=== PATIENT | male | born 1995 | race Caucasian/White ===

== ENCOUNTER 2016-12-28 21:00 | Inpatient (IN) | payer BC ==
--- NOTE | ~2016-12-28 | PN ---
Unit #: [id number] #: [id number] Patient: GARETT ARROYO [id number] [facility] [address] [place] [address] [id number] I MR#: [id number] NAME: GARETT ARROYO ROOM: P182 Age: 21 Sex: M Admission Date: 12/29/2016 : 1995 Attending Physician: Ramon Wang M.D. Admitting Physician: Lorena Chung PROGRESS NOTES DATE OF SERVICE: 12/30/2016 SUBJECTIVE Mr. Arroyo is a 21-year-old white male, who was seen today and chart was reviewed and case was discussed with the staff. He has been anxious, withdrawn, rather seclusive to himself. Meanwhile, he has been cooperative with the treatment recommendations and has been taking the medications and tolerating them fairly well with no reported side effects. MENTAL STATUS EXAMINATION Young white male, who was casually dressed with fair personal hygiene, appears to be in no acute distress or discomfort. He was awake and alert on interaction with intact orientation. His mood was anxious with a congruent affect. He denies any suicidal or homicidal ideations. His insight and judgment remain slightly impaired. TREATMENT PLAN 1. We will continue him on his current medications and treatment protocol. We will monitor his response to medications and make further adjustments as needed. 2. We will continue to follow up. Dictated by... Lorena Chung/elliottl TD: 12/31/2016 15:22 JOB #: [id number] [facility] PROGRESS NOTES Page 1 of 1 X Ramon Wang MD PROGRESS NOTE
--- NOTE | ~2016-12-28 | PN ---
Unit #: [id number] #: [id number] Patient: GARETT ARROYO [id number] [facility] [address] [place] [address] [id number] I MR#: [id number] NAME: GARETT ARROYO ROOM: 82 Age: 21 Sex: M Admission Date: 12/29/2016 : 1995 Attending Physician: Ramon Wang M.D. Admitting Physician: Ramon Wang M.D. Primary Care Physician: Vitaly Doctor Not In System [facility] PROGRESS NOTES DATE 01/02/2017 DISCUSSION Mr. Arroyo is a 21-year-old, white male who was seen today and chart was reviewed and case was discussed with the staff. He has been anxious, withdrawn and rather seclusive to himself. Meanwhile, he has been cooperative with treatment recommendations. He has been taking the medication and tolerating them fairly well with no reported side effects. MENTAL STATUS EXAM Young white male who was casually dressed with fair personal hygiene, appears to be in no acute distress or discomfort. He was awake and alert on interaction with intact orientation. His mood was anxious with congruent affect. His speech was slow and goal directed. He denies any suicidal or homicidal ideation. Also, denies any auditory or visual hallucinations. His insight and judgement remains slightly impaired. TREATMENT PLAN 1. We will continue him on his current treatment protocol. We will monitor his response to the medication. We make further adjustments as needed. 2. We will continue to follow up. Dictated by... Lorena Chung/radhames TD: 01/03/2017 00:20 JOB #: [id number] Unit #: [id number] #: [id number] Patient: GARETT ARROYO PROGRESS NOTES Page 1 of 1 X Ramon Wang MD PROGRESS NOTE
--- NOTE | ~2016-12-28 | PN ---
Unit #: [id number] #: [id number] Patient: GARETT ARROYO [id number] [facility] [address] [place] [address] [id number] I MR#: [id number] NAME: GARETT ARROYO ROOM: 82 Age: 21 Sex: M Admission Date: 12/29/2016 : 1995 Attending Physician: Ramon Wang M.D. Admitting Physician: Ramon Wang M.D. Primary Care Physician: Vitaly Doctor Not In System [facility] PROGRESS NOTES DATE OF SERVICE 01/01/2017 DISCUSSION Mr. Arroyo is a 21-year-old white male with substance abuse and mood disorder who was seen today. Chart was reviewed and case was discussed with the staff. He has been anxious, withdrawn, and rather seclusive to himself. Meanwhile, he has been cooperative with the treatment recommendations and has been taking the medications and tolerating them fairly well with no reported side effects. MENTAL STATUS EXAMINATION Young white male who is casually dressed with fair personal hygiene, appears to be in no acute distress or discomfort. The patient was awake and alert on interaction with intact orientation. His mood is anxious with congruent affect. He denies any suicidal or homicidal ideations and also denies any auditory or visual hallucinations. His insight and judgment remain slightly impaired. TREATMENT PLAN 1. We will continue him on his current medications and treatment protocol. We will monitor his response to the medications and make further adjustments as needed. 2. We will continue to follow up. Dictated by... Lorena Chung/ioanag TD: 01/02/2017 13:05 JOB #: [id number] Unit #: [id number] #: [id number] Patient: GARETT ARROYO PROGRESS NOTES Page 1 of 1 X Ramon Wang MD PROGRESS NOTE
--- NOTE | ~2016-12-28 | PN ---
Unit #: [id number] #: [id number] Patient: GARETT ARROYO [id number] [facility] [address] [place] [address] [id number] I MR#: [id number] NAME: GARETT ARROYO ROOM: P182 Age: 21 Sex: M Admission Date: 12/29/2016 : 1995 Attending Physician: Ramon Wang M.D. Admitting Physician: Ramon Wang M.D. Primary Care Physician: Vitaly Doctor Not In System [facility] PROGRESS NOTES DATE 12/31/2016 DISCUSSION Mr. Arroyo is a 21-year-old, white male with substance abuse and mood disorder who was seen today and chart was reviewed and case was discussed with the staff. He has been anxious, withdrawn and seclusive to himself though appears to be going through detox though he has been cooperative with treatment recommendations. He has not shown any agitation or aggression and has been taking medications and tolerating them fairly well. MENTAL STATUS EXAM Young white male who was casually dressed with fair personal hygiene, appears to be in no acute distress or discomfort. He was awake and alert with intact orientation. His mood was anxious with congruent affect. He denies any suicidal or homicidal ideation. His insight and judgement remains slightly impaired. TREATMENT PLAN We will continue him on his current treatment protocol. We will monitor his response and make further adjustments as needed. Dictated by... Lorena Chung/radhames TD: 01/01/2017 04:38 JOB #: [id number] [facility] PROGRESS NOTES Page 1 of 1 X Ramon Wang MD PROGRESS NOTE
--- NOTE | ~2016-12-28 | PA ---
Unit #: [id number] #: [id number] Patient: GARETT ARROYO [id number] [facility] [address] [place] [address] [id number] I MR#: [id number] NAME: GARETT ARROYO ROOM: P182 Age: 21 Sex: M Admission Date: 12/29/2016 : 1995 Date of Assessment: Attending Physician: Ramon Wang M.D. Admitting Physician: Ramon Wang M.D. PSYCHIATRIC ASSESSMENT IDENTIFYING DATA Mr. Arroyo is a 21-year-old single white male, who is a resident of [place], [place], and was brought to the hospital accompanied by his father. CHIEF COMPLAINT "I need detox from heroin and cocaine." HISTORY OF PRESENT ILLNESS Mr. Arroyo is [id number][id number] male with history of substance abuse and dependence, who came in with a recommendation for inpatient detox from heroin and cocaine use and reports his last use of heroin was yesterday when he used quarter of a gram and has been using half a gram daily over the last 6 months. Reports he had overdosed on heroin on December 27 with an attempt to kill himself, and he being kicked out of the [facility] and being put in a bad situation. Reports that he is not suicidal as long as his family is supportive and he stated "I really want to detox". The patient reports that he was recently said to leave from [facility], because he sold his medication and the patient reports he overdosed one morning on December 26 on half a gram of heroin and reported his normal use is half a gram, but usually uses throughout the day and not wanted the same time and also reports using cocaine and his family stated that his family is supportive, but while he was at the [facility] and he just got caught doing something he was not supposed to be doing and "we are concerned for his safety and every time I walk down the basement and scared he has a room down there and I had to check to see if his breathing and needs help and he is not going to get this". He was seen to be a significant threat to himself and as such, recommendation for inpatient level of care for safety and stabilization was made and the patient was transferred to us. SUBSTANCE ABUSE HISTORY The patient reports history of alcohol, cannabis, cocaine, and opioid abuse, and currently, opioids has been his drug of choice and he has been using cocaine quite regularly as well. PAST PSYCHIATRIC HISTORY The patient has a history of multiple inpatient chemical dependency treatments including being at [facility] and review of the medical records indicate that he is currently not active in treatment program, is not seeing a psychiatrist, not taking any psychotropic medications. PAST MEDICAL HISTORY Unit #: [id number] #: [id number] Patient: GARETT ARROYO No acute or chronic medical illnesses. ALLERGIES No known medication allergies. PERSONAL AND SOCIAL HISTORY A 21-year-old white male, who reports he lives at home with his parents and has fairly decent social support system. MENTAL STATUS EXAMINATION Young white male, who was casually dressed with fair personal hygiene, appears to be in no acute distress or discomfort. He was awake and alert on interaction with intact orientation to time, place, and person. His mood was anxious and depressed with congruent affect. His speech was slow and goal directed. He denies any current suicidal or homicidal ideations and also denies any auditory or visual hallucinations. His insight and judgment remain significantly impaired. DIAGNOSTIC IMPRESSION Psychiatric: Opioid dependence, moderate and acute withdrawals; cocaine dependence, moderate; opioid-induced mood disorder. Medical: None. Stressors: Moderate psychosocial stressors. TREATMENT PLAN 1. The patient has presented with history of substance abuse and mood disorder, and has been decompensating and will need inpatient hospitalization for detoxification, safety, and stabilization. We will start him on detox protocol. We will closely monitor him for any worsening withdrawal symptoms. 2. Supportive therapy was provided to the patient. 3. Safe, structured, and nourishing environment will be reported. ESTIMATED LENGTH OF STAY 4 to 5 days. ABILITY TO HELP SELF Limited. WILLINGNESS TO HELP SELF The patient appears to be willing to help self. STRENGTHS 1. Communicative. 2. Cooperative. PROBLEMS 1. Chronic dysphoric symptoms. 2. Chronic chemical dependency. 3. Poor social support system. DISCHARGE CRITERIA This will be contingent upon the patient's ability to go through detox without having any significant withdrawal symptoms as well as his ability to stay safe to himself, particularly after discharge from the hospital. Dictated by... Unit #: [id number] #: [id number] Patient: ARROYOGARETT M.D. IAA/alexa TD: 12/30/2016 15:43 JOB #: [id number] PSYCHIATRIC ASSESSMENT Page 1 of 1 X Ramon Wang MD PSYCHIATRIC ASSESSMENT
--- NOTE | ~2016-12-28 | HP ---
Unit #: [id number] #: [id number] Patient: GARETT POLANCO [id number] [place] [address] [id number] MR#: [id number] NAME: GARETT POLANCO ROOM: P182 Age: 21 Sex: M Admission Date: 12/29/2016 : 1995 Attending Physician: Ramon Wang M.D. Admitting Physician: Ramon Wang M.D. Primary Care Physician: Generic Doctor Not In System HISTORY AND PHYSICAL HISTORY OF PRESENT ILLNESS Garett is a 21 year old admitted to [facility] because of his drug use. He shoots heroin. PAST MEDICAL HISTORY Long history of opioid abuse to include IV heroin. PAST SURGICAL HISTORY Nothing reported. ALLERGIES No known drug allergies. SOCIAL HISTORY Smokes one pack per day. Denies alcohol. Admits to a long history of opioid abuse to include IV heroin. FAMILY HISTORY Medically noncontributory. REVIEW OF SYSTEMS CONSTITUTIONAL: No fever or chills. HEENT: Denies any sore throat, ear pain or runny nose. CARDIOVASCULAR: Denies chest pain, irregular heart rhythm or palpitations. CHEST: Denies shortness of breath or cough. No hemoptysis. GASTROINTESTINAL: Denies nausea, vomiting, diarrhea or chronic constipation. ENDOCRINE: Denies history of increased thirst or urination. No recent significant weight loss or gain. GENITOURINARY: Denies dysuria, frequency, or hematuria. SKIN: Denies any rashes. HEMATOLOGIC: Denies history of increased bleeding or bruising. MUSCULOSKELETAL: Denies any hot, swollen joints. No generalized muscle pain. NEUROLOGIC: Denies problems with vision or speech. No frequent, severe headaches. No numbness, tingling or weakness in any extremities. Denies loss of bladder or bowel control. CURRENT MEDICATIONS detox protocol PHYSICAL EXAMINATION Unit #: [id number] #: [id number] Patient: GARETT POLANCO GENERAL: Alert, well-nourished, in no apparent distress. VITAL SIGNS: Blood pressure 120/72, heart rate 66, respirations 16, temperature 98.6. WEIGHT: 175 pounds. HEIGHT: 6'4". SKIN: Warm and dry without rash or lesion. HEENT: Normocephalic. TMs not viewed. Oral and nasal passages clear. Conjunctivae clear. Pupils equal, round and reactive to light and accommodation. Extraocular movements intact. NECK: Supple without lymphadenopathy or thyromegaly. HEART: Regular rate and rhythm without murmur. LUNGS: Clear. ABDOMEN: Soft, nontender. : Not done. EXTREMITIES: No evidence of cyanosis, clubbing or edema. Moves all extremities without focal deficit. NEUROLOGICAL: Grossly within normal limits. Cranial Nerves: II: Visual dela cruz are intact. III, IV AND : Extraocular movements are intact. Pupils are equal, round and reactive to light. V: Facial sensation is grossly normal. VII: Facial movements and expression are normal. VIII: Auditory acuity grossly intact. IX, X: Uvula is midline. Phonation is normal. XI: Patient shrugs shoulders and turns head normally. XII: Tongue protrudes in the midline. Sensory and Motor Function: Sensory and motor sensation is grossly normal. Motor: moves all extremities well. Coordination: Gait is normal. Deep Tendon Reflexes: Intact. IMPRESSION Psychiatric admission RECOMMENDATIONS PSYCHIATRIC: Per psychiatrist. MEDICAL: I see no contraindications to participating in facility's activities. MEDICAL PROGNOSIS Good. MEDICAL CONDITION Stable. Dictated by... Danette Dong P.A.-C. for Lorena Richard/radhames TD: 12/30/2016 07:08 JOB #: [id number] Unit #: [id number] #: [id number] Patient: GARETT POLANCO HISTORY AND PHYSICAL Page 1 of 1 X Danette Dong X HISTORY AND PHYSICAL
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
[2016-12-30 14:12] LABS: BASOPHIL# 0.1 X10e3 (0-0.3); BASOPHIL% 1.4 % (0-2.5); EOSINOPHIL# 0.1 X10e3 (0-0.7); HEMATOCRIT 44.2 % (38.0-50.0); HEMOGLOBIN 14.8 gm/dL (13.0-16.0); LYMPHOCYTE# 1.3 X10e3 (1.0-3.5); LYMPHOCYTE% 26.7 % (17.0-45.0); MEAN CELL VOLUME 92.1 FL (83-96); MEAN CORPUSCULAR HEMOGLOBIN 30.7 PG (28-34); MEAN CORPUSCULAR HGB CONC 33.4 g/dL (30-36); MEAN PLATELET VOLUME 8.4 FL (6.5-11.5); MONOCYTE# 0.5 X10e3 (0-1.0); MONOCYTE% 10.9 % (3.0-12.0); NEUTROPHIL# 2.8 X10e3 (1.5-7.1); PLATELET COUNT 265 X10e3 (140-420); RED CELL DISTRIBUTION WIDTH 13.4 % (11.0-15.5); WHITE BLOOD COUNT 4.8 X10e3 (4.0-10.5)
[2016-12-30 14:16] LABS: DIFF IND NO
[2016-12-30 14:51] LABS: ALBUMIN SERUM 4.2 g/dL (3.5-5.0); BILIRUBIN,TOTAL 0.5 mg/dL (0.2-2.0); CALCIUM SERUM 9.6 mg/dL (8.4-10.2); CREATININE SERUM 0.7 mg/dL (0.6-1.4); GLOM FILT RATE Estimated 135.9 mL/min (>60); POTASSIUM 4.4 mmol/L (3.5-5.1); PROTEIN TOTAL SERUM 7.3 g/dL (6.0-8.3)
[2017-01-01 13:45] LABS: URINE APPEARANCE CLEAR; URINE BILIRUBIN NEG (NEG); URINE BLOOD NEG (NEG); URINE COLOR YELLOW; URINE GLUCOSE NEG (NEG); URINE KETONE NEG (NEG); URINE LEUKOCYTE ESTERASE NEG (NEG); URINE NITRATE NEG (NEG); URINE PH 5.5 (5-8); URINE PROTEIN NEG (NEG)
[2017-01-01 13:57] LABS: AMPHETAMINE NEG (NEG); BARBITURATES NEG (NEG); BENZODIAZEPINES NEG (NEG); COCAINE NEG (NEG); MARIJUANA NEG (NEG); OPIATES NEG (NEG); TRICYCLIC ANTIDEPRESSANTS NEG (NEG); U METHADONE NEG (NEG)
== END 2017-01-03 09:30 | DRG 897 ==
LOC: P1E 12-29 10:57
PROVIDERS: Psychiatry & Neurology Psychiatry
PROC: HZ2ZZZZ Detoxification Services for Substance Abuse Treatment (ICD-10-PCS; principal; 2016-12-29)
DX: F11.23 Opioid dependence with withdrawal (principal); F14.20 Cocaine dependence, uncomplicated; F11.24 Opioid dependence with opioid-induced mood disorder; F17.210 Nicotine dependence, cigarettes, uncomplicated
CPT/HCPCS: 80053; 80307; 81003; 85025; 86592